=== PATIENT | male | born 1960 | race Two or more races ===

== ENCOUNTER 2023-11-18 11:51 | Emergency (ER) | payer OTHER ==
[~2023-11-18] VITALS: Ht 165.1 cm; Wt 56.9 kg
[2023-11-18] MEDS ORDERED: BENZ100C97 PO (14:04)
[2023-11-18] MEDS ORDERED: PROM1SOL4 PO (14:04)
[2023-11-18] MEDS ORDERED: AUG875T PO (14:04)
[2023-11-18 14:11] VITALS: BP 117/76; PULSE 74; RESP 12; TEMP 98; O2SAT 7
== END 2023-11-18 14:11 | disposition home or self-care (01) ==
LOC: ER 11:51
DX: B34.9 Viral infection, unspecified (principal)
CPT/HCPCS: 71046